=== PATIENT | female | born 1995 | race Caucasian/White ===

== ENCOUNTER 2020-07-21 15:35 | Emergency (ER) | payer MEDICAID, SELFPAY ==
--- NOTE | ~2020-07-21 | XR_ITS ---
EXAMINATION: XR chest 2V EXAM DATE: 07/21/2020 16:20 INDICATION: Cough. TECHNIQUE: Frontal and lateral projections of the chest obtained and reviewed. Comparison is made to prior examination from 05/16/2013. FINDINGS: The lungs are clear. There are no pleural effusions. The cardiomediastinal silhouette is within normal limits. There is no pneumothorax suspected. The bones and soft tissues are unremarkab le. IMPRESSION: Normal chest x-ray exam. Reviewed, dictated and finalized at location A. IMPRESSION: Normal chest x-ray exam.
[2020-07-21 15:51] VITALS: BP 121/77; PULSE 93; RESP 16; TEMP 36.9; O2SAT 100
--- NOTE | 2020-07-21 16:01 | ED.GENADULT ---
HPI - General Adult General Chief complaint: Upper Respiratory Infection Stated complaint: Cold Time Seen by Provider: 07/21/20 16:01 Source: patient Mode of arrival: ambulatory Limitations: no limitations History of Present Illness HPI narrative: 25-year-old female patient presents to the [facility] with complaints of cold symptoms for the past 3 to 4 days. Patient states she recently traveled to the area from [place] in an airplane due to a in the family. Patient states she does have history of asthma but states that she did not bring her inhaler with her at this time. Patient states she has been trying to take [id number] antihistamines, nasal spray and did have some leftover amoxicillin from [place] from a couple of years ago that she has been taking for the last 2 days. Patient states she has had a runny nose, stuffy nose a cough that is sometimes productive as well as ear pain and a sore throat. Denies any fevers, body aches or chills. Denies any chest pain but does have shortness of breath at times. Denies any abdominal pain, nausea, vomiting or diarrhea. Denies any or breast-feeding at this time. Related Data Home Medications Medication Instructions Recorded Confirmed albuterol 07/21/20 Allergies Allergy/AdvReac Type Severity Reaction Status Date / Time No Known Allergies Allergy Verified 07/21/20 15:51 Review of Systems Review of Systems: Narrative: CONSTITUTIONAL: Denies fever, chills, or sweats. EYES: Denies visual changes, redness, or discharge. ENT: Positive rhinorrhea, congestion, sore throat, and bilateral otalgia. CARDIOVASCULAR: Denies chest pain, palpitations, or edema. RESPIRATORY: Positive cough with dyspnea at time. GASTROINTESTINAL: Denies abdominal pain, nausea, vomiting, or diarrhea. GENITOURINARY: Denies dysuria or hematuria. SKIN: Denies rash or itching. MUSCULOSKELETAL: Denies back pain, joint pain, or myalgia. NEUROLOGIC: Denies headache, numbness, or weakness. PSYCHIATRIC: Denies anxiety or depression. [facility] Past Medical History Medical History (Updated 07/21/20 @ 16:34 by CELINE Nascimento) Asthma Social History Social History Second hand tobacco smoke exposure: No Comments At the time of my signature I agree with nursing past medical history, surgical, social, and family history. There is no relevant family history pertinent to the presenting complaint. Exam Narrative: Exam Narrative: GENERAL: Well-appearing, well-nourished, and in no acute distress. HEAD: Normocephalic, atraumatic. EYES: PERRLA and EOMI. ENT: Nares with erythema and edema noted bilaterally, no rhinorrhea or epistaxis. Mucous membranes moist. Posterior pharynx with no erythema, tonsillar joint, exudates or lesions present. Bilateral TMs are clear no erythema or foreign bodies to the canal. NECK: Supple. No lymphadenopathy CHEST: Clear to auscultation. No respiratory distress. Patient able talk in clear complete sentences. No tripoding noted. HEART: Regular rate and rhythm. No murmur heard. Normal peripheral pulses. ABDOMEN: Soft, nontender, nondistended, normal active bowel sounds. EXTREMITIES: Normal range of motion. No edema. SKIN: Warm, dry, no rash. NEURO: No focal deficits. Alert and oriented x3. Course Reevaluation(s) Reevaluation #1: Reevaluated patient after x-ray resulted. Discussed with her that her x-ray is negative for any acute pneumonia and as well as negative strep and flu. Discussed with patient that we will go ahead and order a cover test for her. Discussed with her that the hospital will contact her sometime tomorrow to schedule the testing. Discussed with patient I am also going to go ahead and prescribe her an inhaler since she currently does not have 1 as well as a course of steroids for any asthma exacerbation that could be occurring. Discussed with patient that she can continue taking her over-t
--- NOTE | 2020-07-21 16:19 | PC.NURSE ---
back in from xray
== END 2020-07-21 16:40 | disposition home or self-care (01) ==
PROVIDERS: Emergency Provider Nurse Practitioner Family
DX: R05 Cough (principal); J34.89 Other specified disorders of nose and nasal sinuses; Z20.828 Contact with and (suspected) exposure to other viral communicable diseases; J45.21 Mild intermittent asthma with (acute) exacerbation
CPT/HCPCS: 71046; 87081; 87804; 87880; 99203; G0463

== ENCOUNTER 2020-07-22 09:58 | Outpatient (NON) | payer MEDICAID, SELFPAY ==
[2020-07-23 13:51] LABS: SARS-CoV-2 RNA PCR Negative
== END 2020-07-22 09:59 ==
PROVIDERS: Visit Provider Nurse Practitioner Family
DX: Z20.828 Contact with and (suspected) exposure to other viral communicable diseases (principal); R05 Cough
CPT/HCPCS: 87635; C9803; U0003